=== PATIENT | female | born 1990 | race Caucasian/White ===

== ENCOUNTER 2024-10-25 06:43 | Emergency (ER) | payer BC, SELFPAY ==
[2024-10-25 06:48] VITALS: BP 145/100; PULSE 99; O2SAT 98
[2024-10-25 06:53] VITALS: PULSE 98; O2SAT 99
[2024-10-25 06:54] VITALS: BP 145/100; PULSE 95; RESP 18; TEMP 36.7; O2SAT 99; BMI 40.7
[2024-10-25] MEDS: AMOXICILLIN/CLAVULANATE POTASSIUM 875/125MG TABLET 1 EACH PO (06:56)
[2024-10-25] MEDS: KETOROLAC 30MG/ML VIAL 30 MG IM (06:57)
--- NOTE | 2024-10-25 06:58 | ED_ITS ---
Discharge Plan Disposition Patient Disposition: Home, Self-Care Prescriptions Prescriptions: New amoxicillin-pot clavulanate 875-125 mg tablet 1 tab PO BID 7 Days Qty: 14 0RF Referrals Follow up/Referrals: Timothy Boykin MD [Primary Care Provider, Medical] - See instructions Activity Restrictions/Add. Instructions Additional Instructions/Restrictions: Please take antibiotics as prescribed for treatment of sinus infection. Please follow-up with your primary care provider. Please return to the emergency department if you develop any new or worsening symptoms or become concerned for your health. Clinical Impressions Clinical Impression: Sinusitis, bacterial Discharge ED Provider: Nirmala Fernandez General Adult HPI General Stated complaint: sinus pressure, headache, teeth pain Time Seen by Provider: 10/25/24 06:45 History of Present Illness HPI narrative: 34-year-old female with history of asthma presents for for worsening sinus pressure, facial pain, headache. She reports that symptoms started last Thursday and have been worsening. She went to urgent care and was given a Z-Marino a few days ago but does not feel like she is getting any better. She reports green drainage from the nose, intermittent nosebleeding. Denies shortness of breath. Reports frontal sinus pressure. Related Data Previous Rx's ?Medication ?Instructions ?Recorded amoxicillin 875 mg-potassium 1 tab PO BID 7 days #14 t abs 10/25/24 clavulanate 125 mg tablet Allergies Allergy/AdvReac Type Severity Reaction Status Date / Time No Known Allergies Allergy Verified 10/25/24 06:54 [facility] Disclaimer: The information contained in this section may have been updated after the patient was seen, as this information can be updated by other users. Social History Smoking Status: Never smoker alcohol intake: never current occupational status: employed Travel in the last 8 weeks?: None ROS Obtained: Yes All systems reviewed & no additional complaints except as documented Physical Exam General General appearance: alert and in no apparent distress Head Head exam: atraumatic and normocephalic Eye Eye exam: Present normal appearance, PERRL and EOMI ENT ENT exam: Present normal external ear exam; Absent normal oropharynx (Tonsillar erythema and exudate) Neck Neck exam: Present normal inspection and full ROM Chest Chest inspection: Present normal inspection and symmetric chest wall rise; Absent tenderness Respiratory Respiratory exam: Present normal lung sounds bilaterally; Absent respiratory distress Cardiovascular Cardiovascular exam: Present regular rate and normal rhythm Abdominal Exam Abdominal exam: Present soft; Absent distention, tenderness or guarding Extremities Exam Extremities exam: Present normal inspection; Absent edema or joint swelling Back Exam Back exam: Present normal inspection; Absent tenderness Neurological Exam Neurological exam: Present alert and oriented X3; Absent motor sensory deficit Psychiatric Psychiatric exam: Present normal affect and normal mood Skin Skin exam: Present warm, dry and normal color Lymphatic Lymphatic Findings: no adenopathy Medical Decision Making Medical Records Medical records reviewed: Yes I reviewed the patient's medical records. Screening: Per USPSTF and CDC recommendations, given the prevalence of disease in our region, it is our hospital?s policy to screen for HIV and viral Hepatitis for all patients aged 18 and over and those with ongoing risk factors. Willian Inquiry Pt receiving controlled substance: No Willian was queried for this patient: No Vital Signs: 10/25/24 06:48 Pulse Rate 99 H Blood Pressure 145/100 H 02 Sat by Pulse Oximetry 98 Oxygen Delivery Method Room Air Lab Data Lab results reviewed: Yes I reviewed the patient's lab results. Orders (Tests/Meds): ED MEDICATIONS Discontinued Medications Generic Name Dose Route Start Last Admin Trade Name Freq PRN Reason Stop Dose Admin Amoxicillin/Clavulanate Potassium 1 each 10/25/24 06:53 10/25/24 06:56 Amoxicillin/Clavulanate Potassium 875/125mg Tablet PO 10/25/24 06:54 1 each ONCE ONE Administration Ketorolac Tromethamine 30 mg 10/25/24 06:53 10/25/24 06:57 Ketorolac 30mg/Ml Vial IM 10/25/24 06:54 30 mg ONCE ONE Administration Medical Decision Narrative: 34-year-old female with history of asthma presents for 1 week of worsening sinus drainage, sinus pressure, headache. History was obtained via interactive discussion with patient. On arrival, patient is [afebrile, hemodynamically stable, satting appropriately, alert, oriented x4, GCS 15], moving all extremities spontaneously. Full physical exam performed and significant for posterior oropharyngeal erythema with exudate, nasal mucosal erythema. Differential includes but is not limited to viral/bacterial sinusitis, pharyngi tis, tension headache, migraine headache. Presentation is consistent with bacterial sinusitis. Patient was initiated on Augmentin for coverage and sent with prescription. Was given Toradol shot for pain. Given instructions regarding symptomatic care. Return precautions given. Discharged in stable condition. Procedures Risk/Benefits of Procedure(s) Were Explained: Yes Critical Care Critical Care Time Critical Care Time: No
[2024-10-25 07:00] VITALS: BP 129/96
[2024-10-25 07:03] VITALS: BP 129/96; PULSE 87; RESP 16; TEMP 36.7; O2SAT 99
--- OUTSIDE RECORDS SUMMARY | 2024-10-25 07:14 | XMS_ITS | Patient Health Record ---
Author Organization [facility] Address [address] [place] [address] Care Team Providers Care Manager Occupational Name Role Phone Unknown, PCP Primary Care Provider UnavailDella Canela Unavailable [phone] Kami Kee Unavailable [phone] Marino Vazquez Unavailable [phone] Allergies Allergen (clinical drug ingredient) Drug/Non Drug Allergy documented on EMR Reaction Allergy Type Onset Date Status Substance with sulfonamide structure and antibacterial mechanism of action (substance) Sulfa Antibiotics hives Drug Allergy Active Results Component Value Reference Range Notes Flu/COVID Rapid Antigen (IH) Reviewed date:11/12/2023 05:00:03 PM Interpretation:Negative Performing Lab: Notes/Report: Negative Flu A negative Negative - Positive Flu B negative Negative - Positive SARS CoV 2 negative Negative - Positive LYME DISEASE AB W/REFL IA (I GG,IGM) Reviewed date:02/25/2024 04:24:58 PM Interpretation:Negative Performing Lab: Notes/Report: Negative LYME AB, SCREEN negative Reason For Referral No Information Medications Medication SIG (Take, Route, Frequency, Duration) Notes Start Date End Date Status Metamucil 0.52 GM 2 capsules with 8 ou nces of liquid Orally Three times a day Active Cymbalta 20 MG 1 cap(s) orally once a day Active Emgality 120 MG/ML as directed Subcutaneous Active Losartan Potassium-HCTZ 100-25 MG 1 tab(s) orally once a day Active Flonase Allergy Relief 50 MCG/ACT 2 spray(s) intranasally once a day 01/21/2022 Active PriLOSEC 2.5 MG as directed Orally Active Slynd 4 MG 1 tablet Orally Once a day Active Vitamin D (Cholecalciferol) 10 MCG (400 UNIT) 2 tablets Orally Once a day Active Bisoprolol Fumarate 5 MG 0.5 tab(s) oral ly once a day Active Almotriptan Malate 12.5 MG 1 tab(s) oral ly once a day prn Active Albuterol Sulfate HFA 108 (90 Base) MCG/ACT 2 puff(s) inhaled 4 times a day PRN Active Levocetirizine Dihydrochloride Active Vitamin C 500 MG as directed Orally Active Immunizations Vaccine Route Administration Date Status Comme nts Flu Vaccine (Given in Past) Unspecified Unknown 07/15/2021 Administered [id number] Quad 0.5mL PFS (0.5mL Admin) 18 y/o & older IM Intramuscular 02/12/2019 Administered [id number] Quad PFS (0.5mL Admin) 18 y/o & older Unknown 09/01/2020 Refused [id number] Quad PFS (0.5mL Admin) 18 y/o & older Unknown 09/14/2020 Refused Social History Tobacco Use: Social History Observation Description Date Details (start date - stop date) Never Smoker NA - NA Tobacco Control (Standard) Question Answer Notes Tobacco use: Nonsmoker AUDIT-C (Standard) Question Answer Notes Did you have a drink containing alcohol in the p ast year? No Points 0 Interpretation Negative Problems Problem Type SNOMED Code ICD Code Onset Dates Problem Status W/U Status Risk Notes Problem 227402212 Seasonal allergies (J30.2) Active confirmed Problem 9744690 Tonsil stone (J35.8) Active confirmed Problem Skin abscess (77723772) Skin abscess (L02.91) Active confirmed Problem Obesity (226187107) Obesity (BMI 30-39.9) (E66.9) Active confirmed Problem Tick bite (60050509) Tick bite (W57.XXXA) Active confirmed Problem 25859723 Primary hypertension (I10) Active confirmed Problem 759899302 BMI 39.0-39.9,adult (Z68.39) Active confirmed Vital Signs Temperature 97.3 degrees Fahrenheit 02/23/2024 Respiratory Rate 18 /min 02/23/2024 Blood pressure diastolic 62 mm Hg 02/16/2024 Height 63 in 02/23/2024 Blood pressure systolic 115 mm Hg 02/16/2024 Weight 225 lbs 02/23/2024 BMI 39.85 kg/m2 02/23/2024 Encounters Encounter Location Date Provider Diagnosis [id number] [facility] [address] [place] [address] 11/12/2023 Della Keys Low grade fever R50.9 ; Diarrhea R19.7 ; Headache R51.9 and Primary hypertension I10 [facility] [address] [place] [address] 02/16/2024 Kami Kee Otalgia, bilateral H92.03 ; Non-recurrent acute serous otitis media of both ears H65.03 and Seasonal allergies J30.2 [id number] [facility] [address] [place] [address] 02/23/2024 Marino George Tick bite W57.XXXA ; Skin abscess L02.91 ; Obesity (BMI 30-39.9) E66.9 and Seasonal allergies J30.[id number] [place] [address] [address] [place] [address] 02/25/2024 Marino George Assessments Encounter Date Diagnosis (ICD Code) Assessment Notes Treatment Notes Treatment Clinical Notes Section Notes 11/12/2023 Diarrhea (ICD-10 - R19.7) Diarrhea: Care Instructions material was published 11/12/2023 Low grade fever (ICD-10 - R50.9) Learning About Fever material was published, Learning About Fever material was published 02/16/2024 Otalgia, bilateral (ICD-10 - H92.03) Earache: Care Instructions material was published Patient will take OTC tylenol per package instructions for pain symptoms 02/16/2024 Non-recurrent acute serous otitis media of both ears (ICD-10 - H65.03) 02/23/2024 Skin abscess (ICD-10 - L02.91) 02/23/2024 Tick bite (ICD-10 - W57.XXXA) Dinstinct abscess with bruised puncture site on right shoulder. Wound has a dinstinct eek resembling the inner ring of a bullseye. Amoxicillin dc'd and changed to doxycycline. Will follow up with patient once lab results have been received. 02/23/2024 Obesity (BMI 30-39.9) (ICD-10 - E66.9) 11/12/2023 Headache (ICD-10 - R51.9) Headache: Care Instructions material was published 02/16/2024 Seasonal allergies (ICD-10 - J30.2) 02/23/2024 Seasonal allergies (ICD-10 - J30.2) 11/12/2023 Primary hypertension (ICD-10 - I10) Plan Of Treatment Pending Test Test Name Order Date Influenza Screen(IH) 08/25/2017 Rapid Strep Screen (IH) 08/25/2017 CULTURE, AEROBIC AND ANAEROBIC W/GRAM ST AIN 12/16/2019 Insurance Providers Payer Name Payer Address Payer Phone Subscriber Number Group Number Insured Name Patient Relationship to Insured Coverage Start Date Coverage End Date [facility] [address] [place] [address] [id number] Nuzhat Singh Self - patient is the insured Medical (General) History Medical History History ICD Code migraines depression HTN asthma allergy shots weekly Surgical History Surgery Date(Month/Year) appendix 2015 Hospitalization History Reason Date(Month/Year) pneumonia 1995,2006
== END 2024-10-25 07:08 | disposition home or self-care (01) ==
LOC: ER 07:13
PROVIDERS: Emergency Provider Student in an Organized Health Care Education/Training Program; PCP Family Medicine
DX: J01.80 Other acute sinusitis (principal); R51.9 Headache, unspecified
CPT/HCPCS: 96372; 99283; J1885